=== PATIENT | female | born 1930 | race Caucasian/White ===

== ENCOUNTER 2018-04-20 03:19 | Emergency (ER) | payer OTHER ==
[~2018-04-20] VITALS: Ht 157.5 cm; Wt 82.6 kg
--- NOTE | ~2018-04-20 | EKG ---
[address] [place] [address] ELECTROCARDIOGRAM REPORT Name: SHEILA QUINTANILLA Room #: [facility] [id number] Admission: 04/20/18 Attend Phys: Discharge: 04/20/18 Date of : [birth year] Report #: [id number] THIS REPORT FOR: //name// [facility] ED Test Date: 2018-04-20 Test Time: 03:29:54 Pat Name: SHEILA QUINTANILLA Department: Room: Gender: F Shift Leader: ROGERS : 1930 Requested By: Yaron Pantoja Order Number: [id number] MD: Basim Jones Measurements Intervals Independence Rate: 100 P: [place]: QRS: -38 QRSD: 91 T: 202 QT: 459 QTc: 593 Interpretive Statements Atrial fibrillation Inferior infarct, old Nonspecific T wave abnormality Prolonged QT interval No previous ECG available for comparison Electronically Signed On 04-21-2018 8:42:33 CDT by Basim Jones [email or web address] <ELECTRONICALLY SIGNED> By: Basim Jones MD, [facility] 04/21/18 [id number] Basim Jones MD, FACC /EPI
[2018-04-20] MEDS ORDERED: LIPITOR10 MG PO (04:10)
[2018-04-20] MEDS ORDERED: ASPIR 8181 MG PO (04:10)
[2018-04-20] MEDS ORDERED: MAGOX 400400 MG PO (04:11)
[2018-04-20] MEDS ORDERED: COZAAR 25 MG TA25 M1 PO (04:11)
[2018-04-20] MEDS ORDERED: LASIX 20 MG TAB20 MG PO (04:11)
[2018-04-20] MEDS ORDERED: MELATIN3 MG PO (04:11)
[2018-04-20] MEDS ORDERED: VITAMIN B122500 MCG PO (04:12)
[2018-04-20] MEDS ORDERED: VITAMIN D1000 UNI1 PO (04:12)
[2018-04-20] MEDS ORDERED: GLUMETZA500 PO (04:12)
[2018-04-20 04:20] LABS: ANION GAP 13 mmol/L (7-16); BUN 12 mg/dL (7-18); CHLORIDE 100 mmol/L (98-107); CO2 21 mmol/L (21-32); CREATININE 0.8 mg/dL (0.6-1.0); GLUCOSE 314 mg/dL (74-106); POTASSIUM 4.2 mmol/L (3.5-5.1); SODIUM 134 mmol/L (136-145)
[2018-04-20 04:30] LABS: ALBUMIN 3.1 g/dL (3.4-5.0); MAGNESIUM 1.7 mg/dL (1.8-2.4); SGOT 27 U/L (15-37); SGPT < 6 U/L (30-65); TOTAL BILIRUBIN 1.5 mg/dL (<0.1-1.0); TOTAL PROTEIN 7.9 g/dL (6.4-8.2); TROPONIN-I <0.06 ng/mL (<0.06)
[2018-04-20 04:39] LABS: URINE BILIRUBIN NEGATIVE (Negative); URINE BLOOD 1+ (Negative); URINE CLARITY CLEAR; URINE COLOR YELLOW; URINE GLUCOSE-RANDOM* 3+ (Negative); URINE KETONES 1+ (Negative); URINE LEUKOCYTES-REFLEX NEGATIVE (Negative); URINE NITRITE-REFLEX NEGATIVE (Negative); URINE PROTEIN (DIPSTICK) NEGATIVE (Negative); URINE SPECIFIC GRAVITY 1.015 (1.005-1.035); URINE UROBILINOGEN 0.2 E.U./dl (0.2-1.0)
[2018-04-20 05:16] LABS: CASTS None Seen /LPF (None Seen); SQUAMOUS 0-3 Few /LPF (0-3); URINE RBC 0-2 Rare /HPF (0-2); URINE WBC-REFLEX 0-5 Rare /HPF (0-5)
[2018-04-20 05:17] LABS: BACTERIA-REFLEX 1-9 Few /HPF (None Seen)
[2018-04-20 05:38] LABS: ABSOLUTE NEUTROPHILS 15.5 thou/uL (1.4-8.2); BASOPHILS 0.3 % (0.0-2.0); EOSINOPHILS 0.1 % (0.0-3.0); HEMATOCRIT 46.1 % (37.0-47.0); HEMOGLOBIN 15.4 gm/dL (12.0-15.0); LYMPHOCYTES 8.4 % (24.0-44.0); MCH 29.9 pg (26.0-34.0); MCHC 33.3 g/dL (28.0-37.0); MCV 89.7 fL (80.0-100.0); MONOCYTES 5.9 % (1.0-8.0); PLATELET COUNT 220 thou/uL (150-400); POLYS 85.3 % (36.0-66.0); RBC 5.15 mil/uL (4.20-5.00); RDW 13.7 % (10.5-14.5); WBC 18.2 thou/uL (4.0-11.0)
[2018-04-20 07:41] VITALS: BP 121/69
== END 2018-04-20 07:51 | disposition short-term general hospital (02) ==
LOC: ER 03:19
PROVIDERS: Emergency Medicine
DX: S72.001A Fracture of unspecified part of neck of right femur, initial encounter for closed fracture (principal); I48.91 Unspecified atrial fibrillation; E11.9 Type 2 diabetes mellitus without complications; I10 Essential (primary) hypertension; Z88.1 Allergy status to other antibiotic agents; W01.0XXA Fall on same level from slipping, tripping and stumbling without subsequent striking against object, initial encounter; Y93.89 Activity, other specified; Y92.002 Bathroom of unspecified non-institutional (private) residence as the place of occurrence of the external cause; Y99.8 Other external cause status